=== PATIENT | female | born 1995 | race Caucasian/White ===

== ENCOUNTER 2019-05-08 05:24 | Emergency (ER) | payer MEDICAID ==
[~2019-05-08] VITALS: Ht 172.7 cm; Wt 74.6 kg
[2019-05-08] MEDS ORDERED: SODIUM CHLORIDE FLUSH 10ML SYR IVF ONE (06:30)
[2019-05-08] MEDS ORDERED: CLINDAMYCIN PMX 600MG/50ML 50 ML IV ONE (06:30)
[2019-05-08] MEDS ORDERED: L.E.T SOLUTION TP ONE ×2 (06:30→06:37)
--- NOTE | 2019-05-08 07:00 | NUR ---
REPORT FROM RANDALL GUILLEN, ASSUME CARE OF PT AT THIS TIME.
[2019-05-08] MEDS ORDERED: CLINDAMYCIN PMX 600MG/50ML 50 ML ONE (07:17)
[2019-05-08 07:30] LABS: ALBUMIN 3.8 g/dL (3.4-5.0); ANION GAP 4 mmol/L (5-15); CALCIUM 9.4 mg/dL (8.5-10.1); CHLORIDE 106 mmol/L (98-107)
--- NOTE | 2019-05-08 07:30 | NUR ---
CONFIRMED WITH ERP FOR CHANGE OF LAB ORDER FROM BC X 2, TO BC X 1 D/T POOR VENOUS ACCESS/DIFFICULT DRAW AND PT REQUEST. BC X 1 DRAWN, CLEOCIN INFUSING PER ERP ORDER. CALL LIGHT WITHIN REACH. SNACKS PROVIDED PER REQUEST.
[2019-05-08 07:38] LABS: CREATININE 0.64 mg/dL (0.55-1.02)
--- NOTE | 2019-05-08 07:45 | NUR ---
CALL FROM LAB, BLOOD CLOTTED FOR CBC. NEED FOR REDRAW. ERP NOTIFIED OF DELAY
[2019-05-08 07:59] VITALS: BP 126/74
--- NOTE | 2019-05-08 08:18 | NUR ---
CBC REDRAW UNSUCCESSFUL. ERP NOTIFIED, CBC CANCELLED.
== END 2019-05-08 08:52 | disposition home or self-care (01) ==
LOC: ED 06:11
DX: L02.413 Cutaneous abscess of right upper limb (principal)
CPT/HCPCS: 10060; 36415; 80048; 82040; 87040; 96365; 99283

== ENCOUNTER 2019-08-26 04:26 | Emergency (ER) | payer MEDICAID ==
[~2019-08-26] VITALS: Ht 174 cm; Wt 78.7 kg
[2019-08-26 04:32] VITALS: BP 120/71
[2019-08-26] MEDS ORDERED: LIDOCAINE-MPF 1%, 5ML ONE (04:45)
[2019-08-26] MEDS ORDERED: LIDOCAINE-MPF 1%, 5ML INFIL ONE (05:00)
--- NOTE | 2019-08-26 05:00 | NUR ---
PT PRESENTS TO THE ED WITH ABSCESS TO LEFT WRIST. LEFT LOWER ARM APPEARS SWOLLEN AND ERYTHEMATOUS. PA TO BEDSIDE FOR I&D. GAUZE AND COBAND APPLIED.
== END 2019-08-26 06:23 | disposition home or self-care (01) ==
LOC: ED 06:06
DX: L02.413 Cutaneous abscess of right upper limb (principal); F11.129 Opioid abuse with intoxication, unspecified; J45.909 Unspecified asthma, uncomplicated; F17.290 Nicotine dependence, other tobacco product, uncomplicated; Z88.0 Allergy status to penicillin
CPT/HCPCS: 10060; 99283

== ENCOUNTER 2020-07-24 15:23 | Emergency (ER) | payer MEDICAID ==
[~2020-07-24] VITALS: Ht 172.7 cm; Wt 70.8 kg
[2020-07-24 15:24] VITALS: BP 122/48
[2020-07-24 16:32] LABS: ALANINE AMINOTRANSFERASE 16 U/L (12-78); ALBUMIN 3.5 g/dL (3.4-5.0); ANION GAP 4 mmol/L (5-15); CALCIUM 8.9 mg/dL (8.5-10.1); CHLORIDE 105 mmol/L (98-107); CREATININE 0.63 mg/dL (0.55-1.02)
[2020-07-24 16:34] LABS: ALKALINE PHOSPHATASE 101 U/L (45-117); BILIRUBIN,TOTAL 0.2 mg/dL (0.2-1.0); TOTAL PROTEIN 8.6 g/dL (6.4-8.2)
[2020-07-24] MEDS ORDERED: LIDOCAINE-MPF 1%, 5ML ONE (16:37)
[2020-07-24 16:45] LABS: BASOPHILS % (AUTO) 1 % (0-1); EOSINOPHILS % (AUTO) 2 % (1-7); LYMPHOCYTES % (AUTO) 49 % (22-44); MEAN CORPUSCULAR HEMOGLOBIN 28.4 pg (27.0-34.8); MEAN CORPUSCULAR HGB CONC 33.2 g/dL (32.4-35.8); MEAN PLATELET VOLUME 7.6 fL (7.4-10.4); MONOCYTES % (AUTO) 8 % (2-9); NEUTROPHILS % (AUTO) 41 % (42-75); PLATELET COUNT 232 x10^3/uL (130-400); RED BLOOD COUNT 3.97 x10^6/uL (3.82-5.3); RED CELL DISTRIBUTION WIDTH 14.3 % (9.6-15.2)
[2020-07-24] MEDS ORDERED: LIDOCAINE-MPF 1%, 5ML INFIL ONE (17:00)
== END 2020-07-24 17:08 | disposition home or self-care (01) ==
LOC: ED 17:00
DX: L02.415 Cutaneous abscess of right lower limb (principal)
CPT/HCPCS: 10060; 36415; 80053; 85025; 99284